=== PATIENT | female | born 1965 | race Caucasian/White ===

== ENCOUNTER → 2024-08-18 | Outpatient (CLI) | payer MEDICAID, SELFPAY ==
--- NOTE | 2024-08-18 | XR_ITS ---
Examination: Lumbar spine, 5 views Technique: Lumbar spine AP, lateral, coned lateral lower lumbar spine, bilateral obliques 5 views Exam date and time: August 18, 2024 1010 hours INDICATIONS: Low back pain beginning 10 years ago FINDINGS: Moderate osteopenia Diffuse facet arthropathy Grade 2 spondylolisthesis L5 on S1 with advanced degenerative disc disease at this level No lumbar fracture Intact pedicles IMPRESSION: Advanced degenerative disc disease L5-S1 Grade 2 spondylolisthesis L5-S1 produces severe spinal stenosis
--- NOTE | 2024-08-18 | XR_ITS ---
EXAMINATION: Cervical spine, 5 views Technique: Cervical spine AP, AP odontoid, lateral, bilateral obliques, 5 views Exam date and time: August 18, 2024 1010 hours INDICATIONS: Neck pain beginning 10 years ago. FINDINGS: Prominent osteopenia No cervical fracture Moderate disc narrowing C5-C6, advanced disc narrowing C6-C7 Moderate bilateral neural foraminal stenosis at the C6-C7 level Intact odontoid IMPRESSION: Advanced degenerative disc disease C6-C7 with moderate bilateral neural foraminal stenosis at this level
--- NOTE | 2024-08-18 09:51 | XR_ITS ---
Examination: Shoulder,left, 3 views Technique: Shoulder AP internal rotation, AP external rotation, Y view shoulder, 3 views Exam date and time :August 18, 2024 1010 hours INDICATIONS: Left shoulder pain beginning 10 years ago FINDINGS: Prominent osteopenia Advanced narrowing glenohumeral joint No fracture or shoulder dislocation IMPRESSION: Advanced narrowing glenohumeral joint
== END | disposition home or self-care (01) ==
PROVIDERS: PCP Family Medicine; Referring Provider Physician Assistant; Visit Provider Physician Assistant
DX: M25.812 Other specified joint disorders, left shoulder (principal); M50.323 Other cervical disc degeneration at C6-C7 level; M48.02 Spinal stenosis, cervical region; M51.379 Other intervertebral disc degeneration, lumbosacral region without mention of lumbar back pain or lower extremity pain; M48.07 Spinal stenosis, lumbosacral region; M43.17 Spondylolisthesis, lumbosacral region
CPT/HCPCS: 72050; 72110; 73030

== ENCOUNTER 2025-06-17 10:00 | Outpatient (RCR) | payer MEDICAID, SELFPAY ==
--- NOTE | 2025-06-03 12:37 | PTNOTE_ITS ---
PT OP Initial Eval Patient Information Outpatient Physical Therapy Treatment Date: 06/03/25 Visit Reasons: Lower back pain Medical Diagnosis: Back Pain Treatment Dx #1: Back Pain Treatment Dx #2: Back Pain Start of Care: 06/03/25 Date of Onset: 6 months ago Smoking Status Smoking Status: Never smoker Initial Assessment Subjective: Pt is a 60 y/o female reports of chronic back pain (02/03) with BLE pain R>L worsening in the past 6 months. Pt's most recent xray showed advanced DDD of L5- S1 and grade II anterolisthesis. Pt has limitation with sitting, standing, chores, self care, cooking, cleaning, and walking, and performing recreational activities. Objective: L/S AROM: all motions are WFL with pain in all end range Hip PROM: all motions are WFL except IR Hip MMTs: grossly 3/5 Special Test (+) SLR Assessment: Pt demonstrate L/S mobility deficits with pain leading to difficulty with ADLs. Pt will attempt physical therapy if pain persist Pt will be refer back to provider for further consultation Short Term and Retirement Goals 1) Increase L/S AROM WNL in 6 wks to be able to perform chores 2) Increase core strength WFL in 6 wks to be able to perform recreational activities 3) Increase hip MMTs grossly to 4-/5 in 6 wks to be able to walk more than 30 mins 4) Decrease back pain to 2/10 in 6 wks to be able to sit or stand more than 30 mins 5) Indep with HEP Treatment Plan 1) Manual Therapy 2) Therapeutic Activities 3) Therapeutic Exercises 4) Modalities (ice, heat) Frequency and Duration: 2 x wk for 6 wks Certification Dates: 06/03/25 to 09/03/25 Procedure Charges OP PT Eval Mod Complex 30 minutes: Yes
--- NOTE | 2025-06-15 10:36 | PT.ODAYNRPT ---
PT Outpatient Daily Note OP Daily Note Outpatient Physical Therapy Treatment Date: 06/15/25 Visit Reasons: Lower back pain Subjective: Pt's back is feels about the same. Pt will like heat for the back today. Objective: Please see flow chart for list of ther ex performed Assessment: pre heat helped patient tolerate supine exercises Plan: Continue with PT Length of Time (minutes) of Treatment: 30 Minutes Procedure Charges Therapeutic Exercise 30 minutes: Yes
== END 2025-06-26 23:59 | disposition home or self-care (01) ==
LOC: CPTX 10:00
PROVIDERS: PCP Nurse Practitioner Family; Referring Provider Nurse Practitioner Family; Visit Provider Nurse Practitioner Family
DX: M51.362 Other intervertebral disc degeneration, lumbar region with discogenic back pain and lower extremity pain (principal); G89.29 Other chronic pain; R26.2 Difficulty in walking, not elsewhere classified
CPT/HCPCS: 97110; 97162

== ENCOUNTER 2025-07-08 09:30 | Outpatient (RCR) | payer MEDICAID, SELFPAY ==
--- NOTE | 2025-06-27 12:52 | PT.ODAYNRPT ---
PT Outpatient Daily Note OP Daily Note Outpatient Physical Therapy Treatment Date: 06/27/25 Visit Reasons: LOW BACK PAIN Subjective: Pt's back is better. Pt does not have any concerns. Objective: Please see flow chart for list of ther ex performed Assessment: tolerate exercises with minimal pain Plan: Continue with PT Length of Time (minutes) of Treatment: 30 Minutes Procedure Charges Therapeutic Exercise 30 minutes: Yes
--- NOTE | 2025-07-05 16:04 | PT.ODAYNRPT ---
PT Outpatient Daily Note OP Daily Note Outpatient Physical Therapy Treatment Date: 07/05/25 Visit Reasons: LOW BACK PAIN Subjective: No new concerns or complaints. Objective: Please see flow sheet for the r ex list. Assessment: Verbal/Tactile cues and demonstration for pt to perform PPT exercise with good technique. Plan: Continue with pOC. Length of Time (minutes) of Treatment: 30 Minutes Procedure Charges Therapeutic Exercise 30 minutes: Yes
--- NOTE | 2025-08-12 08:21 | PT.ODS1RPT ---
PT OP Progress/Discharge Note Date of Service: 08/12/25 Progress Note/DC Note Progress Note/Discharge Note: DC Note Patient Information Visit Reasons: LOW BACK PAIN Service Discharge Date: 08/12/25 Status Assessment: Pt has been seen for 6 visits (eval + 5 visit). Pt last treated on 07/08/25 and has not return to therapy. Pt has been contact multiple times without success. At this time Pt will be d/c from care due to non-compliance per attendance policy. Pt did not meet set goals in therapy; thank you for your referrals
== END 2025-07-27 23:59 | disposition home or self-care (01) ==
LOC: CPTX 09:30
PROVIDERS: PCP Nurse Practitioner Family; Referring Provider Nurse Practitioner Family; Visit Provider Nurse Practitioner Family
DX: M51.372 Other intervertebral disc degeneration, lumbosacral region with discogenic back pain and lower extremity pain (principal)
CPT/HCPCS: 97110